=== PATIENT | female | born 1950 | race Caucasian/White ===

== ENCOUNTER 2019-05-27 09:01 | Emergency (ER) | payer OTHER ==
[2019-05-27 09:27] VITALS: BP 122/77; PULSE 79; TEMP 98.2; BMI 34.9
[2019-05-27] MEDS ORDERED: ACETAMINOPHEN 325 MG TABLET (FP) PO ONE (09:53)
--- NOTE | 2019-05-27 09:57 | PDOC ---
History of Present Illness - General Chief Complaint: Pain Stated Complaint: LT. SHOULDER PAIN Time Seen by Provider: 05/27/19 09:46 History Source: Patient - History of Present Illness Occurred: reports: other Severity: reports: moderate Upper Extremity Pain Location: left: shoulder Past History - Past Medical History Allergies/Adverse Reactions: Allergies Allergy/AdvReac Type Severity Reaction Status Date / Time Penicillins Allergy Rash Verified 12/31/13 19:39 Home Medications: Ambulatory Orders Calcium Carbonate/Vitamin D3 [Calcium 500-Vit D3 200 Caplet] 1 each PO BID 03/10 Losartan Potassium [Cozaar] 50 mg PO DAILY 03/10/12 Budesonide/Formeterol Fumarate [SYMBICORT 160/4.5mcg -] 2 inh IH BID #0 inhaler 07/31/13 Gabapentin [Neurontin -] 300 mg PO DAILY #0 capsule 07/31/13 Omeprazole [Prilosec (RX)] 20 mg PO DAILY 12/31/13 Simvastatin 10 mg PO DAILY 12/31/13 Metoprolol Succinate [Toprol XL -] 25 mg PO DAILY #30 tab.sr.24h 01/03/14 Cholecalciferol (Vitamin D3) [Vitamin D3] 50,000 unit PO WEEKLY capsule Aspirin [ASA -] 81 mg PO DAILY 09/22/15 Montelukast Na [Singulair -] 10 mg PO HS 09/22/15 Acetaminophen [Tylenol -] 1,000 mg PO Q6H #30 tablet 05/27/19 Anemia: No Asthma: Yes (CHRONIC-NO RECENT ATTACK) Cancer: No Cardiac Disorders: Yes (CARDIAC ARRHYTHMIA-RAPID HR) CVA: No COPD: Yes CHF: No Dementia: No Diabetes: No (PREDIABETES) GI Disorders: Yes (HIATAL HERNIA,VERO ESOPHAGITIS,) Disorders: No HTN: Yes Hypercholesterolemia: Yes Liver Disease: Yes (HEPATIC GRANULOMA) Seizures: No Thyroid Disease: No - Surgical History Abdominal Surgery: No Appendectomy: No Cardiac Surgery: No Cholecystectomy: Yes Lung Surgery: No Neurologic Surgery: No Orthopedic Surgery: No - Immunization History Immunization Up to Date: Yes - Psycho Social/Smoking Cessation Hx Smoking Status: No Smoking History: Never smoked Have you smoked in the past 12 months: No Number of Cigarettes Smoked Daily: 0 If you are a former smoker, when did you quit?: 1980 Hx Alcohol Use: No Drug/Substance Use Hx: No Substance Use Type: None Hx Substance Use Treatment: No Review of Systems - Review of Systems Constitutional: No: Chills, Fever Respiratory: No: Shortness of Breath Cardiac (ROS): No: Chest Pain Musculoskeletal: Yes: Joint Pain. No: Joint Swelling Neurological: No: Numbness, Tingling, Weakness *Physical Exam - Vital Signs Last Vital Signs Temp Pulse Resp BP Pulse Ox 98.2 F 79 18 122/77 96 05/27/19 09:25 05/27/19 09:25 05/27/19 09:25 05/27/19 09:25 05/27/19 09:25 - Physical Exam General Appearance: Yes: Appropriately Dressed. No: Apparent Distress HEENT: positive: Normal Voice Neck: positive: Supple Respiratory/Chest: positive: Lungs Clear, Normal Breath Sounds. negative: Respiratory Distress Cardiovascular: positive: Regular Rate, S1, S2 Extremity: positive: Normal Inspection, Normal Range of Motion. negative: Tender, Swelling Integumentary: positive: Dry, Warm Neurologic: positive: Fully Oriented, Alert, Normal Mood/Affect Medical Decision Making - Medical Decision Making 05/27/19 09:53 69-year-old female history of pre-diabetes, hypertension here with left shoulder pain for 1 month, worse w/ ROM. No trauma. No sensory changes, upper extremity weakness, neck pain, chest pain or shortness of breath. Seen by her doctor and given a cream with no relief. see exam L shoulder pain x 1 month M/l MSK, i,e arthritis vs nonspecific inflammation vs overuse Similar remarkable for pain to GH joint with range of motion -Dc w/ pain control and PMD f/u 05/27/19 09:56 Discharge - Discharge Information Problems reviewed: Yes Clinical Impression/Diagnosis: Shoulder pain Qualifiers: Chronicity: unspecified Laterality: left Qualified Code(s): M25.512 - Pain in left shoulder Condition: Good Disposition: HOME - Additional Discharge Information Prescriptions: Acetaminophen [Tylenol -] 1,000 mg PO Q6H #30 tablet - Follow up/Referral - Patient Discharge Instructions Patient Printed Discharge Instructions: DI for Shoulder Pain Additional Instructions: Take Tylenol as directed and follow-up with your PMD - Post Discharge Activity
== END 2019-05-27 10:12 | disposition home or self-care (01) ==
LOC: JERFT 09:01
DX: M25.512 Pain in left shoulder (principal); I10 Essential (primary) hypertension; E78.00 Pure hypercholesterolemia, unspecified; J45.909 Unspecified asthma, uncomplicated; I49.9 Cardiac arrhythmia, unspecified; R73.03 Prediabetes; Z88.0 Allergy status to penicillin; Z87.19 Personal history of other diseases of the digestive system
CPT/HCPCS: 99281-25

== ENCOUNTER 2022-03-25 19:49 | Emergency (ER) | payer OTHER ==
[2022-03-25 20:06] VITALS: BP 109/64; PULSE 99; RESP 18; TEMP 97.8; BMI 33.6
[2022-03-25] MEDS ORDERED: ONDANSETRON 4 MG/2 ML VIAL IVPUSH ONE (20:14)
[2022-03-25] MEDS ORDERED: LACTATED RINGERS SOLUTION 1000 ML INFUS.BAG IV ONE (20:14)
[2022-03-25] MEDS ORDERED: ONDANSETRON 4 MG/2 ML VIAL ONE (20:33)
[2022-03-25 20:50] LABS: BASO % 0.4 % (0-2.0); EOS % 0.6 % (0-4.5); HEMATOCRIT 43.7 % (32.4-45.2); HEMOGLOBIN 14.3 GM/dL (10.7-15.3); LYMPH % 6.8 % (8-40); MCH 30.3 pg (25.7-33.7); MCHC 32.8 g/dl (32.0-36.0); MEAN CELL VOLUME 92.3 fl (80-96); MEAN PLT VOLUME 8.8 fl (7.5-11.1); MONO % 2.3 % (3.8-10.2); NEUT % 89.9 % (42.8-82.8); PLATELET COUNT 233 10^3/uL (134-434); RBC 4.73 M/mm3 (3.60-5.2); RDW 15.3 % (11.6-15.6); WHITE BLOOD COUNT 7.7 K/mm3 (4.0-10.0)
[2022-03-25 21:37] LABS: ALBUMIN 3.6 g/dl (3.4-5.0); CALCIUM 9.1 mg/dL (8.5-10.1)
[2022-03-25 21:40] LABS: CREATININE 1.2 mg/dL (0.55-1.3)
[2022-03-25 21:42] LABS: BILIRUBIN,TOTAL 0.4 mg/dL (0.2-1); TOT PROT 6.8 g/dl (6.4-8.2)
== END 2022-03-26 00:35 | disposition home or self-care (01) ==
LOC: JER 19:49
PROC: 3E033GC Introduction of Other Therapeutic Substance into Peripheral Vein, Percutaneous Approach (ICD-10-PCS; principal; 2022-03-25)
DX: A09 Infectious gastroenteritis and colitis, unspecified (principal)
CPT/HCPCS: 36415; 76705-TC; 80053; 83690; 83735; 85025; 96374; 99284-25

== ENCOUNTER 2022-10-05 14:58 | Emergency (ER) | payer OTHER ==
[2022-10-05 15:17] VITALS: BP 121/64; PULSE 68; RESP 15; TEMP 98.2; BMI 34.2
[2022-10-05] MEDS ORDERED: ACETAMINOPHEN 500 MG TABLET (FP) PO ONE (16:12)
[2022-10-05] MEDS ORDERED: LIDOCAINE 5% TOPICAL PATCH TP ONE (16:15)
[2022-10-05] MEDS ORDERED: KETOROLAC TROMETHAMINE 30 MG/1 ML VIAL IM ONE (16:15)
[2022-10-05] MEDS ORDERED: ACETAMINOPHEN 500 MG TABLET (FP) ONE (16:58)
[2022-10-05] MEDS ORDERED: KETOROLAC TROMETHAMINE 30 MG/1 ML VIAL ONE (16:58)
[2022-10-05] MEDS ORDERED: LIDOCAINE 5% TOPICAL PATCH ONE (16:58)
[2022-10-05] MEDS ORDERED: LIDOCAINE PATCH REMOVAL MC SCH (22:00)
== END 2022-10-05 17:53 | disposition home or self-care (01) ==
LOC: JER 14:58
PROC: 3E0233Z Introduction of Anti-inflammatory into Muscle, Percutaneous Approach (ICD-10-PCS; principal; 2022-10-05)
DX: M54.50 Low back pain, unspecified (principal)
CPT/HCPCS: 99284-25